=== PATIENT | female | born 1960 | race Caucasian/White ===

== ENCOUNTER → 2017-11-27 | Outpatient (CLI) | payer OTHER ==
[~2017-11-27] MED LIST: ALBIPROI; ATOR20; Advair Hfa 230-12 GM; CEFU500 PO; ERGO400; Estradiol1 MG; FLUNOI; MONTELUKAST SODI1 GM; PRED20 PO; PROG100; ROPI1; THEO100ERB; TIOT18; ZESTRIL40 MG
[2017-11-29 13:11] LABS: HPV Genotype 16 Not Detected (NOTDET); HPV Genotype 18 Not Detected (NOTDET)
[2017-12-16 09:30] LABS: HPV High Risk Other Not Detected (NOTDET)
== END | disposition home or self-care (01) ==
LOC: LAB 12:06
PROVIDERS: Obstetrics & Gynecology
DX: Z09 Encounter for follow-up examination after completed treatment for conditions other than malignant neoplasm (principal); Z87.42 Personal history of other diseases of the female genital tract
CPT/HCPCS: 87624; 88142

== ENCOUNTER 2018-01-17 11:16 | Day surgery (SDC) | payer OTHER ==
[~2018-01-17] VITALS: Ht 167.6 cm; Wt 107.2 kg
[~2018-01-17 11:16] MED LIST changes: -ATOR20; -Advair Hfa 230-12 GM; -MONTELUKAST SODI1 GM; -THEO100ERB
[2018-01-17] MEDS ORDERED: Advair Hfa 230-12 GM (11:44)
[2018-01-17] MEDS ORDERED: ATOR20 (11:46)
[2018-01-17] MEDS ORDERED: MONTELUKAST SODI1 GM (11:46)
[2018-01-17] MEDS ORDERED: THEO100ERB (11:46)
== END 2018-01-17 13:42 | disposition home or self-care (01) ==
LOC: ORSCSDS 11:16
PROVIDERS: Internal Medicine Gastroenterology
PROC: 0DB68ZX Excision of Stomach, Via Natural or Artificial Opening Endoscopic, Diagnostic (ICD-10-PCS; principal; 2018-01-17 12:30)
PROC: 0DBM8ZX Excision of Descending Colon, Via Natural or Artificial Opening Endoscopic, Diagnostic (ICD-10-PCS; principal; 2018-01-17 12:30)
PROC: 0DB58ZX Excision of Esophagus, Via Natural or Artificial Opening Endoscopic, Diagnostic (ICD-10-PCS; principal; 2018-01-17 12:30)
PROC: 0DB98ZX Excision of Duodenum, Via Natural or Artificial Opening Endoscopic, Diagnostic (ICD-10-PCS; principal; 2018-01-17 12:30)
PROC: 0DBN8ZX Excision of Sigmoid Colon, Via Natural or Artificial Opening Endoscopic, Diagnostic (ICD-10-PCS; principal; 2018-01-17 12:30)
DX: K21.0 Gastro-esophageal reflux disease with esophagitis (principal); B37.81 Candidal esophagitis; K22.2 Esophageal obstruction; D12.4 Benign neoplasm of descending colon; K63.5 Polyp of colon; K64.8 Other hemorrhoids; K57.30 Diverticulosis of large intestine without perforation or abscess without bleeding; Z12.11 Encounter for screening for malignant neoplasm of colon; Z80.0 Family history of malignant neoplasm of digestive organs; J44.9 Chronic obstructive pulmonary disease, unspecified; I10 Essential (primary) hypertension; G47.33 Obstructive sleep apnea (adult) (pediatric); Z79.899 Other long term (current) drug therapy; Z87.891 Personal history of nicotine dependence
CPT/HCPCS: 88305; 88312; 88342; J2405; J7120

== ENCOUNTER → 2019-10-31 | Outpatient (CLI) | payer OTHER ==
[~2019-10-31] MED LIST changes: +ATOR20; +Advair Hfa 230-12 GM; +MONTELUKAST SODI1 GM; +THEO100ERB
[2019-10-31 20:36] LABS: BASOPHILS ABSOLUTE AUTO 0.08 K/mm3 (0.00-0.23); BASOPHILS PERCENT AUTO 1 % (0-2); EOSINOPHILS ABSOLUTE AUTO 0.41 K/mm3 (0.00-0.68); EOSINOPHILS PERCENT AUTO 4 % (0-6); Hematocrit 45.3 % (33.0-51.0); Hemoglobin 14.6 g/dL (11.5-16.0); IMMATURE GRAN ABSOLUTE AUTO 0.03 K/mm3 (0.00-0.10); IMMATURE GRAN PERCENT AUTO 0 % (0-1); LYMPHOCYTES ABSOLUTE AUTO 2.76 K/mm3 (0.84-5.20); LYMPHOCYTES PERCENT AUTO 29 % (21-46); MONOCYTES ABSOLUTE AUTO 0.57 K/mm3 (0.16-1.47); MONOCYTES PERCENT AUTO 6 % (4-13); Mean Corpuscular HGB 29.4 pg (26.0-34.0); Mean Corpuscular HGB Conc 32.2 g/dL (31.5-36.5); Mean Corpuscular Volume 91 fL (80-100); NEUTROPHILS ABSOLUTE AUTO 5.63 K/mm3 (1.96-9.15); NEUTROPHILS PERCENT AUTO 60 % (41-73); Platelet Count 296 K/mm3 (150-400); RDW Standard Deviation 43.8 fL (35.1-46.3); Red Blood Cell Count 4.96 M/mm3 (3.80-5.20); White Blood Cell Count 9.48 K/mm3 (4.00-11.30)
== END | disposition home or self-care (01) ==
LOC: LAB 18:15 → LAB SHORT 18:15
PROVIDERS: Nurse Practitioner Family
DX: R21 Rash and other nonspecific skin eruption (principal)
CPT/HCPCS: 85025; 85651; 86140

== ENCOUNTER 2021-06-01 14:23 | Emergency (ER) | payer OTHER ==
[~2021-06-01] VITALS: Ht 167.6 cm; Wt 110.2 kg
[~2021-06-01 14:23] MED LIST changes: +ALBU90OI INH; +BACL10 PO; +FLUTICASONE-SA1 EAC9 INH; +LOSA50 PO; +MEDR2.5; +NAPR220 PO; -TIOT18; +TIOT18 INH; +ZYRTEC10 M1 PO
[2021-06-01 15:40] LABS: BASOPHILS ABSOLUTE AUTO 0.05 K/mm3 (0.00-0.23); BASOPHILS PERCENT AUTO 0 % (0-2); EOSINOPHILS PERCENT AUTO 1 % (0-6); Hematocrit 41.3 % (33.0-51.0); Hemoglobin 13.8 g/dL (11.5-16.0); IMMATURE GRAN ABSOLUTE AUTO 0.09 K/mm3 (0.00-0.10); IMMATURE GRAN PERCENT AUTO 1 % (0-1); LYMPHOCYTES ABSOLUTE AUTO 0.97 K/mm3 (0.84-5.20); LYMPHOCYTES PERCENT AUTO 8 % (21-46); MONOCYTES ABSOLUTE AUTO 1.07 K/mm3 (0.16-1.47); MONOCYTES PERCENT AUTO 9 % (4-13); Mean Corpuscular HGB 29.2 pg (26.0-34.0); Mean Corpuscular HGB Conc 33.4 g/dL (31.5-36.5); Mean Corpuscular Volume 87 fL (80-100); Mean Platelet Volume 10.5 fL (9.1-12.4); NEUTROPHILS ABSOLUTE AUTO 10.36 K/mm3 (1.96-9.15); NEUTROPHILS PERCENT AUTO 82 % (41-73); Platelet Count 291 K/mm3 (150-400); RDW Coefficient Variation 12.8 % (11.7-14.2); RDW Standard Deviation 41.4 fL (35.1-46.3); Red Blood Cell Count 4.73 M/mm3 (3.80-5.20); White Blood Cell Count 12.64 K/mm3 (4.00-11.30)
[2021-06-01 16:02] LABS: Anion Gap 7 mmol/L (6-16); Blood Urea Nitrogen 13 mg/dL (8-24); Bun/Creatinine Ratio 21.3 (12.0-20.0); CO2, Blood 25 mmol/L (21-32); Chloride, Blood 102 mmol/L (98-108); Creatinine, Blood 0.61 mg/dL (0.40-1.00); Glomerular Filtration Rate >60 (60-); Glucose, Blood 106 mg/dL (70-99); Sodium, Blood 134 mmol/L (136-145)
[2021-06-01 17:00] LABS: Source, Urine Clean Catch
[2021-06-01 17:08] LABS: Appearance, Urine Clear (Clear); Bilirubin, Urine Neg (Neg); Blood, Urine 1+ (Neg); Color, Urine Yellow (P-Yellow); Glucose Qualitative, Urine Neg (Neg); Ketones, Urine 3+ (Neg); Leukocyte Esterase, Urine Neg (Neg); Nitrite, Urine Neg (Neg); Protein, Urine 1+ (Neg); Specific Gravity, Urine 1.005 (1.003-1.022); Urobilinogen, Urine NORM (Normal)
[2021-06-01 17:16] LABS: Bacteria Many /hpf; Red Blood Cells, Urine 0-2 /hpf (0-2); Squamous Epithelial Cells Mod /hpf (Few); White Blood Cells, Urine 0-2 /hpf (0-5)
[2021-06-01 17:33] LABS: SARS-Cov-2 (COVID-19) PCR, MMC NEGATIVE (NEGATIVE)
[2021-06-01] MEDS ORDERED: LEVO750 PO (17:55)
== END 2021-06-01 18:36 | disposition home or self-care (01) ==
LOC: ER 14:23
PROVIDERS: Student in an Organized Health Care Education/Training Program
DX: J44.0 Chronic obstructive pulmonary disease with (acute) lower respiratory infection (principal); J18.9 Pneumonia, unspecified organism; D72.829 Elevated white blood cell count, unspecified; I10 Essential (primary) hypertension; Z20.822 Contact with and (suspected) exposure to COVID-19; Z88.0 Allergy status to penicillin; Z88.7 Allergy status to serum and vaccine; Z88.8 Allergy status to other drugs, medicaments and biological substances; Z79.899 Other long term (current) drug therapy; Z87.891 Personal history of nicotine dependence
CPT/HCPCS: 71045; 80048; 81001; 84484; 85025; 93005; 93010; 99285-25; A9270; J7030; U0004

== ENCOUNTER 2021-06-22 09:00 | Emergency (ER) | payer OTHER ==
[~2021-06-22] VITALS: Ht 167.6 cm; Wt 109.8 kg
[~2021-06-22 09:00] MED LIST changes: -ALBU90OI INH; -BACL10 PO; -Estradiol1 MG; +FAMO20 PO; -FLUTICASONE-SA1 EAC9 INH; +INDO50 PO; +LEVO750 PO; -LOSA50 PO; -MEDR2.5; -THEO100ERB; -TIOT18 INH; -ZYRTEC10 M1 PO
[2021-06-22 09:29] LABS: BASOPHILS ABSOLUTE AUTO 0.08 K/mm3 (0.00-0.23); BASOPHILS PERCENT AUTO 1 % (0-2); EOSINOPHILS ABSOLUTE AUTO 0.25 K/mm3 (0.00-0.68); EOSINOPHILS PERCENT AUTO 2 % (0-6); Hematocrit 40.1 % (33.0-51.0); Hemoglobin 13.3 g/dL (11.5-16.0); IMMATURE GRAN ABSOLUTE AUTO 0.11 K/mm3 (0.00-0.10); IMMATURE GRAN PERCENT AUTO 1 % (0-1); LYMPHOCYTES ABSOLUTE AUTO 1.09 K/mm3 (0.84-5.20); LYMPHOCYTES PERCENT AUTO 7 % (21-46); MONOCYTES ABSOLUTE AUTO 1.86 K/mm3 (0.16-1.47); MONOCYTES PERCENT AUTO 12 % (4-13); Mean Corpuscular HGB 28.6 pg (26.0-34.0); Mean Corpuscular HGB Conc 33.2 g/dL (31.5-36.5); Mean Corpuscular Volume 86 fL (80-100); Mean Platelet Volume 10.1 fL (9.1-12.4); NEUTROPHILS ABSOLUTE AUTO 12.22 K/mm3 (1.96-9.15); NEUTROPHILS PERCENT AUTO 78 % (41-73); Platelet Count 360 K/mm3 (150-400); RDW Coefficient Variation 12.9 % (11.7-14.2); RDW Standard Deviation 40.8 fL (35.1-46.3); Red Blood Cell Count 4.65 M/mm3 (3.80-5.20); White Blood Cell Count 15.61 K/mm3 (4.00-11.30)
[2021-06-22 09:53] LABS: Alanine Aminotransfer (ALT/SGP 21 U/L (12-78); Albumin/Globulin Ratio 0.7 (0.8-1.8); Alk Phos 98 U/L (50-136); Anion Gap 9 mmol/L (6-16); Aspartate Aminotrans (AST/SGOT 11 U/L (12-37); Bilirubin, Total 0.6 mg/dL (0.1-1.0); Blood Urea Nitrogen 13 mg/dL (8-24); Bun/Creatinine Ratio 19.8 (12.0-20.0); CO2, Blood 25 mmol/L (21-32); Calcium, Blood 9.6 mg/dL (8.5-10.1); Chloride, Blood 104 mmol/L (98-108); Creatinine, Blood 0.66 mg/dL (0.40-1.00); Globulin, Blood 4.6 g/dL (2.2-4.0); Glomerular Filtration Rate >60 (60-); Glucose, Blood 158 mg/dL (70-99); Sodium, Blood 138 mmol/L (136-145); Total Protein, Blood 7.6 g/dL (6.4-8.2); Troponin I <0.015 ng/mL (0.000-0.040)
[2021-06-22 10:56] LABS: Prothrombin Time Results 10.8 Sec (9.7-11.5)
[2021-06-22 12:33] LABS: Automated BF WBC Count 5.204 K/mm3 (0-999); Body Fluid WBC Count 5204 /mm3 (0-999); RBC Count, Body Fluid 30000 /mm3 (0-0)
[2021-06-22 12:36] LABS: Appearance, Body Fluid Cloudy (Clear); Color, Body Fluid Red (None-Yellow)
[2021-06-22 13:13] LABS: Total Cell Count, Body Fluid 100
[2021-06-22] MEDS ORDERED: LEVFLO500 PO (13:13)
[2021-06-22] MEDS ORDERED: ONDA4ODT MM (13:13)
== END 2021-06-22 13:56 | disposition home or self-care (01) ==
LOC: ER 09:00
PROVIDERS: Emergency Medicine
DX: J90 Pleural effusion, not elsewhere classified (principal); I10 Essential (primary) hypertension; J44.9 Chronic obstructive pulmonary disease, unspecified; Z88.0 Allergy status to penicillin; Z88.7 Allergy status to serum and vaccine; Z88.8 Allergy status to other drugs, medicaments and biological substances; Z79.899 Other long term (current) drug therapy; Z87.891 Personal history of nicotine dependence
CPT/HCPCS: 32555; 36415; 71045; 80053; 83880; 84484; 85025; 85610; 85730; 89051; 93005; 93010; 99285-25

== ENCOUNTER 2021-06-26 15:16 | Inpatient (IN) | payer OTHER ==
[~2021-06-26] VITALS: Ht 167.6 cm; Wt 108.4 kg
[~2021-06-26 15:16] MED LIST changes: +LEVFLO500 PO; +ONDA4ODT MM
[2021-06-26 15:57] LABS: BASOPHILS ABSOLUTE AUTO 0.11 K/mm3 (0.00-0.23); BASOPHILS PERCENT AUTO 1 % (0-2); EOSINOPHILS ABSOLUTE AUTO 0.04 K/mm3 (0.00-0.68); EOSINOPHILS PERCENT AUTO 0 % (0-6); Hematocrit 41.6 % (33.0-51.0); IMMATURE GRAN PERCENT AUTO 2 % (0-1); LYMPHOCYTES ABSOLUTE AUTO 1.64 K/mm3 (0.84-5.20); LYMPHOCYTES PERCENT AUTO 10 % (21-46); MONOCYTES PERCENT AUTO 11 % (4-13); Mean Corpuscular HGB 28.7 pg (26.0-34.0); Mean Corpuscular HGB Conc 33.7 g/dL (31.5-36.5); Mean Corpuscular Volume 85 fL (80-100); Mean Platelet Volume 9.9 fL (9.1-12.4); NEUTROPHILS PERCENT AUTO 77 % (41-73); Platelet Count 438 K/mm3 (150-400); RDW Coefficient Variation 13.2 % (11.7-14.2); RDW Standard Deviation 41.2 fL (35.1-46.3); Red Blood Cell Count 4.87 M/mm3 (3.80-5.20); White Blood Cell Count 17.19 K/mm3 (4.00-11.30)
[2021-06-26 16:20] LABS: Alanine Aminotransfer (ALT/SGP 18 U/L (12-78); Albumin, Blood 2.6 g/dL (3.4-5.0); Albumin/Globulin Ratio 0.5 (0.8-1.8); Alk Phos 109 U/L (50-136); Anion Gap 8 mmol/L (6-16); Aspartate Aminotrans (AST/SGOT 9 U/L (12-37); Bilirubin, Total 0.8 mg/dL (0.1-1.0); Blood Urea Nitrogen 10 mg/dL (8-24); Bun/Creatinine Ratio 15.5 (12.0-20.0); CO2, Blood 24 mmol/L (21-32); Calcium, Blood 9.6 mg/dL (8.5-10.1); Chloride, Blood 102 mmol/L (98-108); Creatinine, Blood 0.65 mg/dL (0.40-1.00); Globulin, Blood 5.1 g/dL (2.2-4.0); Glomerular Filtration Rate >60 (60-); Glucose, Blood 143 mg/dL (70-99); Potassium, Blood 4.2 mmol/L (3.5-5.5); Sodium, Blood 134 mmol/L (136-145); Total Protein, Blood 7.7 g/dL (6.4-8.2); Troponin I <0.015 ng/mL (0.000-0.040)
[2021-06-26] MEDS ORDERED: ESTRADIOL0.5 MG PO (20:14)
[2021-06-26] MEDS ORDERED: TIOT18 INH (20:14)
[2021-06-26] MEDS ORDERED: ZYRTEC10 M1 PO (20:15)
[2021-06-26] MEDS ORDERED: THEO400ER PO (20:15)
[2021-06-26] MEDS ORDERED: LOSARTAN POTAS100 M1 PO (20:16)
[2021-06-26] MEDS ORDERED: FLUTICASONE-SA1 EAC9 INH (20:16)
[2021-06-26] MEDS ORDERED: BACL10 PO (20:17)
[2021-06-26] MEDS ORDERED: MEDR2.5 PO (20:18)
[2021-06-26] MEDS ORDERED: ALBU90OI INH (20:18)
[2021-06-26] MEDS ORDERED: ROPI.25 PO (20:25)
[2021-06-27 05:52] LABS: BASOPHILS PERCENT AUTO 1 % (0-2); EOSINOPHILS PERCENT AUTO 1 % (0-6); Hematocrit 39.7 % (33.0-51.0); IMMATURE GRAN ABSOLUTE AUTO 0.35 K/mm3 (0.00-0.10); IMMATURE GRAN PERCENT AUTO 2 % (0-1); LYMPHOCYTES ABSOLUTE AUTO 1.79 K/mm3 (0.84-5.20); LYMPHOCYTES PERCENT AUTO 11 % (21-46); MONOCYTES ABSOLUTE AUTO 1.93 K/mm3 (0.16-1.47); MONOCYTES PERCENT AUTO 12 % (4-13); Mean Corpuscular HGB 28.1 pg (26.0-34.0); Mean Corpuscular HGB Conc 32.7 g/dL (31.5-36.5); Mean Corpuscular Volume 86 fL (80-100); Mean Platelet Volume 9.9 fL (9.1-12.4); NEUTROPHILS ABSOLUTE AUTO 11.37 K/mm3 (1.96-9.15); NEUTROPHILS PERCENT AUTO 73 % (41-73); Platelet Count 412 K/mm3 (150-400); RDW Coefficient Variation 13.2 % (11.7-14.2); RDW Standard Deviation 41.4 fL (35.1-46.3); Red Blood Cell Count 4.62 M/mm3 (3.80-5.20); White Blood Cell Count 15.64 K/mm3 (4.00-11.30)
[2021-06-27 06:07] LABS: International Normalized Ratio 1.06; Prothrombin Time Results 11.1 Sec (9.7-11.5)
[2021-06-27 06:11] LABS: Alanine Aminotransfer (ALT/SGP 14 U/L (12-78); Albumin, Blood 2.3 g/dL (3.4-5.0); Albumin/Globulin Ratio 0.5 (0.8-1.8); Alk Phos 106 U/L (50-136); Anion Gap 8 mmol/L (6-16); Aspartate Aminotrans (AST/SGOT 9 U/L (12-37); Bilirubin, Total 0.8 mg/dL (0.1-1.0); Blood Urea Nitrogen 9 mg/dL (8-24); Bun/Creatinine Ratio 14.2 (12.0-20.0); CO2, Blood 27 mmol/L (21-32); Calcium, Blood 9.4 mg/dL (8.5-10.1); Chloride, Blood 98 mmol/L (98-108); Creatinine, Blood 0.63 mg/dL (0.40-1.00); Globulin, Blood 4.9 g/dL (2.2-4.0); Glomerular Filtration Rate >60 (60-); Glucose, Blood 136 mg/dL (70-99); Potassium, Blood 3.9 mmol/L (3.5-5.5); Sodium, Blood 133 mmol/L (136-145); Total Protein, Blood 7.2 g/dL (6.4-8.2)
--- NOTE | 2021-06-27 07:46 | NUR ---
SHIFT SUMMARY PATIENT ALERT AND ORIENTED. MEDICATED PER EMAR FOR PAIN. REPORTS HAVING SHORTNESS OF BREATH AT REST, PURSED LIP BREATHING. NO ACUTE ISSUES NOTED OVERNIGHT. CALL LIGHT WITHIN REACH. REPORT GIVEN TO ONCOMING RN.
--- NOTE | 2021-06-27 20:20 | NUR ---
SUMM- PT A/O X4, WENT DOWN FOR U.S GUIDED THOROCENTESIS THIS AM. 200ML OFF, PT STATES SHE FEELS BETTER POST PROCEDURE, L LOWER LUNG FIELD 1/[address] CANTU, HAS ORDERED US GUIDED BX OF LUNG MASS. PT STATES PAIN IN DIAHPHRAGM REGION ESPECIALLY WITH DEEP BREATH AND MORESO ON THE L. MEDICATED WITH IRMS WITH RELEIF. ELEVATED BP'S, STARTED ON LOSARTIN MID AFTERNOON WITH NO CHANGE. GAVE IV METOPROLOL AND REPORTED TO NOC RN TO F/U.
--- NOTE | 2021-06-28 06:12 | NUR ---
PATIENT SUMMARY PATIENT IS ALERT AND ORIENTED X4. VS STABLE FOR PATIENT ON RA. NO COMPLAINTS OF CHEST PAIN OR SHORTNESS OF BREATH. NO EVENTS OVER NIGHT. ALL CARES AND MEDICATIONS GIVEN AND COMPLETED ORDERED ACCORDING TO NURSING JUDGEMENT. ALL UNFINISHED CARES ENDORSED TO ONCOMING RN.
--- NOTE | 2021-06-28 18:15 | NUR ---
PT AO X 4,VERY PLEASANT,PT ASSESSMENT REMAINS UNCHANGED,NO ACUTE CHANGES T/O THE SHIFT,PT IS WALKING AROUND IN THE ROOM.BELONGINS AND CALL LIGHT IN REACH.
--- NOTE | 2021-06-28 23:56 | NUR ---
Called Dr. Abraham hart lung sounds on the left side are absent. orders given for chest x-ray and will continue to monitor.
[2021-06-29 05:23] LABS: BASOPHILS ABSOLUTE AUTO 0.08 K/mm3 (0.00-0.23); BASOPHILS PERCENT AUTO 1 % (0-2); EOSINOPHILS ABSOLUTE AUTO 0.15 K/mm3 (0.00-0.68); EOSINOPHILS PERCENT AUTO 1 % (0-6); Hematocrit 39.3 % (33.0-51.0); Hemoglobin 12.7 g/dL (11.5-16.0); IMMATURE GRAN ABSOLUTE AUTO 0.44 K/mm3 (0.00-0.10); IMMATURE GRAN PERCENT AUTO 3 % (0-1); LYMPHOCYTES ABSOLUTE AUTO 2.08 K/mm3 (0.84-5.20); LYMPHOCYTES PERCENT AUTO 14 % (21-46); MONOCYTES ABSOLUTE AUTO 1.53 K/mm3 (0.16-1.47); MONOCYTES PERCENT AUTO 10 % (4-13); Mean Corpuscular HGB 27.4 pg (26.0-34.0); Mean Corpuscular HGB Conc 32.3 g/dL (31.5-36.5); Mean Corpuscular Volume 85 fL (80-100); Mean Platelet Volume 9.9 fL (9.1-12.4); NEUTROPHILS ABSOLUTE AUTO 10.37 K/mm3 (1.96-9.15); NEUTROPHILS PERCENT AUTO 71 % (41-73); Platelet Count 407 K/mm3 (150-400); RDW Coefficient Variation 13.2 % (11.7-14.2); RDW Standard Deviation 41.1 fL (35.1-46.3); Red Blood Cell Count 4.63 M/mm3 (3.80-5.20); White Blood Cell Count 14.65 K/mm3 (4.00-11.30)
[2021-06-29 05:42] LABS: Albumin, Blood 2.2 g/dL (3.4-5.0); Anion Gap 8 mmol/L (6-16); Blood Urea Nitrogen 13 mg/dL (8-24); Bun/Creatinine Ratio 18.8 (12.0-20.0); CO2, Blood 26 mmol/L (21-32); Calcium, Blood 9.3 mg/dL (8.5-10.1); Chloride, Blood 99 mmol/L (98-108); Creatinine, Blood 0.69 mg/dL (0.40-1.00); Glomerular Filtration Rate >60 (60-); Glucose, Blood 126 mg/dL (70-99); Phosphorus, Blood 3.4 mg/dL (2.5-4.9); Potassium, Blood 3.6 mmol/L (3.5-5.5); Sodium, Blood 133 mmol/L (136-145)
--- NOTE | 2021-06-29 18:39 | NUR ---
PT IS AO X 4, PT HAS NO ACUTES CHANGES THROUGHOUT SHIFT,PT ASSESSMENT REMAINS UNCHANGED,PT IN BED,CALL LIGHT IN REACH WILL CONTINUE TO MONITOR.
[2021-06-29 20:06] LABS: Automated BF RBC Count 0.011 M/mm3 (0-0); Automated BF WBC Count 0.878 K/mm3 (0-999); Body Fluid WBC Count 878 /mm3 (0-999); RBC Count, Body Fluid 11000 /mm3 (0-0)
[2021-06-29 20:19] LABS: Glucose, Body Fluid 89 mg/dL; Lactate Dehydrogenase, Body Fl 450 U/L; Protein, Body Fluid 5.2 g/dL
[2021-06-29 20:21] LABS: Albumin, Body Fluid 2.1 g/dL
[2021-06-29 21:31] LABS: Appearance, Body Fluid Hazy (Clear); Color, Body Fluid Yellow (None-Yellow); Total Cell Count, Body Fluid 100
[2021-06-29 22:47] LABS: pH, Body Fluid 7.5
--- NOTE | 2021-06-30 04:28 | NUR ---
CLOTH BEAMER SUMMARY ADMITTED FOR LEFT PLEURAL EFFUSION. PT IS A FULL CODE. PT HAD BEDSIDE THORACENTESIS AT THE BEGINNING OF SHIFT AND MEDICATED FOR PAIN X1. PT HAS BEEN RESTING COMFORTABLY. SHE IS INDEPENDENT IN THE ROOM. PT WOKE UP SHORT OF BREATH AND RECEIVED BREATHING TREATMENT. NO OTHER CONCERNS THIS SHIFT.
[2021-06-30 05:37] LABS: Total Protein, Blood 7.5 g/dL (6.4-8.2)
[2021-06-30 09:36] LABS: Hematocrit 42.3 % (33.0-51.0); Hemoglobin 13.5 g/dL (11.5-16.0); Mean Corpuscular HGB 28.1 pg (26.0-34.0); Mean Corpuscular HGB Conc 31.9 g/dL (31.5-36.5); Mean Corpuscular Volume 88 fL (80-100); Mean Platelet Volume 10.6 fL (9.1-12.4); Platelet Count 377 K/mm3 (150-400); RDW Coefficient Variation 13.2 % (11.7-14.2); RDW Standard Deviation 42.8 fL (35.1-46.3); White Blood Cell Count 16.47 K/mm3 (4.00-11.30)
[2021-06-30 09:51] LABS: Albumin, Blood 2.3 g/dL (3.4-5.0); Anion Gap 8 mmol/L (6-16); Blood Urea Nitrogen 13 mg/dL (8-24); Bun/Creatinine Ratio 16.8 (12.0-20.0); CO2, Blood 27 mmol/L (21-32); Calcium, Blood 9.2 mg/dL (8.5-10.1); Chloride, Blood 98 mmol/L (98-108); Creatinine, Blood 0.77 mg/dL (0.40-1.00); Glomerular Filtration Rate >60 (60-); Glucose, Blood 132 mg/dL (70-99); Phosphorus, Blood 3.7 mg/dL (2.5-4.9); Potassium, Blood 3.7 mmol/L (3.5-5.5); Sodium, Blood 133 mmol/L (136-145)
[2021-06-30 09:59] LABS: BAND PERCENT MAN 10 % (0-8); BASOPHILS ABSOLUTE MAN 0.16 K/mm3 (0.00-0.23); BASOPHILS PERCENT MAN 1 % (0-2); EOSINOPHILS PERCENT MAN 0 % (0-6); LYMPHOCYTES ABSOLUTE MAN 1.81 K/mm3 (0.84-5.20); LYMPHOCYTES PERCENT MAN 11 % (21-46); METAMYELOCYTE ABSOLUTE MAN 0.16 K/mm3 (0.00-0.00); METAMYELOCYTE PERCENT MAN 1 % (0-0); MONOCYTES ABSOLUTE MAN 0.49 K/mm3 (0.16-1.47); MONOCYTES PERCENT MAN 3 % (4-13); NEUTROPHILS ABSOLUTE MAN 13.83 K/mm3 (1.96-9.15); SEG NEUTROPHILS PERCENT MAN 74 % (41-73); TOTAL CELLS COUNTED 100
--- NOTE | 2021-06-30 15:29 | NUR ---
PT AO X 4,PT IS INDEPENDENT,PT ASSESSMENT REMAINS UNCHANGED,PT HAS NO ACUTES CHANGES T/O.PT TRANSFERED VIA STRETCHER TO [place] FOR FURTHER MONITORING,WITH ALL HER BELONGINS.
[2021-07-04 06:09] LABS: (LD) FRACTION 1 20 % (17-32); (LD) FRACTION 2 28 % (25-40); (LD) FRACTION 3 19 % (17-27); (LD) FRACTION 4 10 % (5-13); (LD) FRACTION 5 23 % (4-20); LDH 157 IU/L (119-226)
== END 2021-06-30 15:16 | disposition short-term general hospital (02) | DRG 177 ==
LOC: ER 15:16 → MEDS 15:17
PROVIDERS: Family Medicine; Internal Medicine Critical Care Medicine; Physician Assistant; Student in an Organized Health Care Education/Training Program; ADMIT Internal Medicine
PROC: 0W9B3ZZ Drainage of Left Pleural Cavity, Percutaneous Approach (ICD-10-PCS; principal; 2021-06-29)
DX: J86.9 Pyothorax without fistula (principal); J15.6 Pneumonia due to other Gram-negative bacteria; J91.8 Pleural effusion in other conditions classified elsewhere; J44.9 Chronic obstructive pulmonary disease, unspecified; I10 Essential (primary) hypertension; G47.33 Obstructive sleep apnea (adult) (pediatric); E66.9 Obesity, unspecified; F41.9 Anxiety disorder, unspecified; G62.9 Polyneuropathy, unspecified; Z87.891 Personal history of nicotine dependence; Z98.51 Tubal ligation status; Z88.0 Allergy status to penicillin; Z88.7 Allergy status to serum and vaccine; Z88.8 Allergy status to other drugs, medicaments and biological substances; Z98.890 Other specified postprocedural states; Z68.38 Body mass index [BMI] 38.0-38.9, adult; Z79.899 Other long term (current) drug therapy
CPT/HCPCS: 32555; 36415; 71045; 71046; 80053; 80069; 82042; 82945; 83615; 83625; 83986; 84155; 84157; 84484; 85025; 85610; 87070; 87075; 87076; 87205; 88108; 88305; 89051; 93005; 93010; 94640; 94664; 94760; 94762; 99285-25; A9270; G0378; J1650; J2185; J2405; J3370; J7050

== ENCOUNTER 2022-06-09 08:00 | Inpatient (IN) | payer OTHER ==
[~2022-06-09] VITALS: Ht 167.6 cm; Wt 102.2 kg
[~2022-06-09 08:00] MED LIST changes: +ALBU90OI INH; +AMLO5 PO; +ASPI81CH PO; +ATOR80 PO; +BACL10 PO; +ESTRADIOL0.5 MG PO; +FLUTICASONE-SA1 EAC9 INH; +HYDHCL25 PO; +LOSARTAN POTAS100 M1 PO; +MEDR2.5 PO; +METO10 PO; +Prozac20 MG PO; +Pulmicort Fle180 MCG INH; +ROPI.25 PO; +THEO400ER PO; +THERA-D2000 UNIT PO; +TIOT18 INH; +ZYRTEC10 M1 PO
[2022-06-09 09:18] LABS: BASOPHILS ABSOLUTE AUTO 0.09 K/mm3 (0.00-0.23); BASOPHILS PERCENT AUTO 1 % (0-2); EOSINOPHILS ABSOLUTE AUTO 0.34 K/mm3 (0.00-0.68); EOSINOPHILS PERCENT AUTO 3 % (0-6); Hematocrit 48.6 % (33.0-51.0); Hemoglobin 16.2 g/dL (11.5-16.0); IMMATURE GRAN ABSOLUTE AUTO 0.07 K/mm3 (0.00-0.10); IMMATURE GRAN PERCENT AUTO 1 % (0-1); LYMPHOCYTES ABSOLUTE AUTO 1.92 K/mm3 (0.84-5.20); LYMPHOCYTES PERCENT AUTO 17 % (21-46); MONOCYTES ABSOLUTE AUTO 0.85 K/mm3 (0.16-1.47); MONOCYTES PERCENT AUTO 7 % (4-13); Mean Corpuscular HGB 29.6 pg (26.0-34.0); Mean Corpuscular HGB Conc 33.3 g/dL (31.5-36.5); Mean Corpuscular Volume 89 fL (80-100); Mean Platelet Volume 10.6 fL (9.1-12.4); NEUTROPHILS ABSOLUTE AUTO 8.34 K/mm3 (1.96-9.15); NEUTROPHILS PERCENT AUTO 72 % (41-73); Platelet Count 289 K/mm3 (150-400); RDW Coefficient Variation 12.6 % (11.7-14.2); RDW Standard Deviation 41.3 fL (35.1-46.3); Red Blood Cell Count 5.48 M/mm3 (3.80-5.20); White Blood Cell Count 11.61 K/mm3 (4.00-11.30)
[2022-06-09 09:37] LABS: Albumin, Blood 3.8 g/dL (3.4-5.0); Bilirubin, Total 0.3 mg/dL (0.1-1.0); Bun/Creatinine Ratio 23.1 (12.0-20.0); Calcium, Blood 9.5 mg/dL (8.5-10.1); Creatinine, Blood 0.69 mg/dL (0.40-1.00); Potassium, Blood 4.2 mmol/L (3.5-5.5); Total Protein, Blood 7.8 g/dL (6.4-8.2)
[2022-06-09 11:14] LABS: Influenza A, PCR NEGATIVE (NEGATIVE); Influenza B, PCR NEGATIVE (NEGATIVE); Resp Syncytial Virus, PCR NEGATIVE (NEGATIVE); SARS-Cov-2 (COVID-19) PCR, MMC NEGATIVE (NEGATIVE)
[2022-06-09] MEDS ORDERED: ONDA4ODT MM (12:46)
[2022-06-09] MEDS ORDERED: LOSA50 PO (18:25)
--- NOTE | 2022-06-09 18:35 | NUR ---
PT ARRIVED TO PCU13, ABLE TO STAND AND AMBULATE FROM GURNEY TO BED WIOUT ASSISTANCE. ABLE TO AMBULATE TO RESTROOM AND BACK WITH SBA FOR IV POLE. PT REPORTS NAUSEA AND APPEARS TO HAVE NONPRODUCTIVE DRY HEAVES. PHENERGAN IS NOT YET DUE PRN. PT IS A&OX4, FOLLOWS COMMANDS, [place], CONTINUOUS TELEMETRY IN PLACE, ORIENTED TO UNIT, ROOM AND CALL LIGHT. SEE DOCUMENTED VS. CALL LIGHT IN REACH, WILL CONTINUE TO MONITOR AND GIVE REPORT TO NOC SHIFT RN.
[2022-06-10 04:07] LABS: Hemoglobin 16.1 g/dL (11.5-16.0); Mean Corpuscular HGB 29.2 pg (26.0-34.0); Mean Corpuscular HGB Conc 33.5 g/dL (31.5-36.5); Mean Corpuscular Volume 87 fL (80-100); Mean Platelet Volume 10.6 fL (9.1-12.4); Platelet Count 299 K/mm3 (150-400); RDW Coefficient Variation 12.9 % (11.7-14.2); RDW Standard Deviation 41.1 fL (35.1-46.3); Red Blood Cell Count 5.52 M/mm3 (3.80-5.20)
[2022-06-10 04:24] LABS: Bun/Creatinine Ratio 19.3 (12.0-20.0); Calcium, Blood 9.2 mg/dL (8.5-10.1); Creatinine, Blood 0.57 mg/dL (0.40-1.00); Potassium, Blood 3.6 mmol/L (3.5-5.5)
--- NOTE | 2022-06-10 06:24 | NUR ---
SHIFT SUMMARY PT IS ALERT AND ORIENTED X4. SHE DENIES CHEST PAIN/PRESSURE. DENIES SOB. PT HAD HIGH BP'S UNTIL 2400 WHEN GIVEN PO HTN MEDS WELL IV HTN MEDS PER ORDER. SHE HAS BEEN NAUSEAOUS T/O THE NIGHT WITH SOME RELIEF AFTER RECEIVING BENADRYL IV AND LOWERING BP. PT DID REPORT HAVING A HISTORY OF VERTIGO. HR IS SR IN THE 80'S WITH PROLONGED QTC. SHE IS ABLE TO GET UP TO BSC ADLIB. CALL LIGHT IS WITHIN REACH.
[2022-06-10] MEDS ORDERED: PANT20 PO (12:35)
[2022-06-10] MEDS ORDERED: PROM25 PO (12:42)
--- NOTE | 2022-06-10 13:55 | NUR ---
PT DISCHARGED HOME WITH ALL BELONGINGS. PT TRANSPORTED BY A FRIEND. DISCHARGE TEACHING REVIEWED INCLUDING MEDICATION LIST, NEW MEDICATION, FOLLOW UP APPOINTMENT AND TEACHING. PT STATES SHE HAS NO QUESTIONS OR CONCERS AT THIS TIME. IVs X2 REMOVED WITH CATHETERS INTACT. NO FURTHER DISCHARGE NEEDS IDENTIFIED AT THIS TIME.
== END 2022-06-10 14:08 | disposition home or self-care (01) | DRG 305 ==
LOC: ER 08:00 → ICUW 16:30 → PCU 18:13
PROVIDERS: Physician Assistant; ADMIT Internal Medicine
DX: I16.0 Hypertensive urgency (principal); K92.0 Hematemesis; J44.9 Chronic obstructive pulmonary disease, unspecified; K21.9 Gastro-esophageal reflux disease without esophagitis; Z20.822 Contact with and (suspected) exposure to COVID-19; E11.9 Type 2 diabetes mellitus without complications; F41.8 Other specified anxiety disorders; F43.10 Post-traumatic stress disorder, unspecified; E78.00 Pure hypercholesterolemia, unspecified; F12.10 Cannabis abuse, uncomplicated; Z98.51 Tubal ligation status; Z98.890 Other specified postprocedural states; Z88.0 Allergy status to penicillin; Z88.8 Allergy status to other drugs, medicaments and biological substances; Z88.1 Allergy status to other antibiotic agents; Z88.7 Allergy status to serum and vaccine; Z79.899 Other long term (current) drug therapy; Z79.82 Long term (current) use of aspirin; Z79.02 Long term (current) use of antithrombotics/antiplatelets; Z79.51 Long term (current) use of inhaled steroids; Z87.891 Personal history of nicotine dependence
CPT/HCPCS: 0241U; 71046; 80048; 80053; 82947; 84484; 85025; 85027; 93005; 93010; 94640; 94664; 94760; 94762; 96374; 96375; 99285-25; A9270; C9113; J0360; J1200; J2405; J2550; J2765; J7030; J7050

== ENCOUNTER 2022-07-19 13:38 | Emergency (ER) | payer OTHER ==
[~2022-07-19] VITALS: Ht 167.6 cm; Wt 106.6 kg
[~2022-07-19 13:38] MED LIST changes: +LOSA50 PO; +PANT20 PO; +PROM25 PO
[2022-07-19 15:06] LABS: BASOPHILS ABSOLUTE AUTO 0.02 K/mm3 (0.00-0.23); BASOPHILS PERCENT AUTO 0 % (0-2); EOSINOPHILS ABSOLUTE AUTO 0.04 K/mm3 (0.00-0.68); EOSINOPHILS PERCENT AUTO 0 % (0-6); Hematocrit 49.1 % (33.0-51.0); Hemoglobin 16.2 g/dL (11.5-16.0); IMMATURE GRAN ABSOLUTE AUTO 0.08 K/mm3 (0.00-0.10); IMMATURE GRAN PERCENT AUTO 1 % (0-1); LYMPHOCYTES ABSOLUTE AUTO 1.06 K/mm3 (0.84-5.20); LYMPHOCYTES PERCENT AUTO 9 % (21-46); MONOCYTES PERCENT AUTO 3 % (4-13); Mean Corpuscular HGB 28.8 pg (26.0-34.0); Mean Corpuscular Volume 87 fL (80-100); Mean Platelet Volume 10.4 fL (9.1-12.4); NEUTROPHILS ABSOLUTE AUTO 10.57 K/mm3 (1.96-9.15); NEUTROPHILS PERCENT AUTO 87 % (41-73); Platelet Count 336 K/mm3 (150-400); RDW Coefficient Variation 12.6 % (11.7-14.2); RDW Standard Deviation 40.7 fL (35.1-46.3); Red Blood Cell Count 5.62 M/mm3 (3.80-5.20); White Blood Cell Count 12.17 K/mm3 (4.00-11.30)
[2022-07-19 15:30] LABS: Albumin, Blood 4.2 g/dL (3.4-5.0); Bilirubin, Total 0.6 mg/dL (0.1-1.0); Bun/Creatinine Ratio 25.6 (12.0-20.0); Calcium, Blood 9.8 mg/dL (8.5-10.1); Creatinine, Blood 0.59 mg/dL (0.40-1.00); Globulin, Blood 4.2 g/dL (2.2-4.0); Potassium, Blood 3.8 mmol/L (3.5-5.5); Total Protein, Blood 8.4 g/dL (6.4-8.2)
[2022-07-19] MEDS ORDERED: PHENERGAN25 MG PR (20:43)
== END 2022-07-19 21:02 | disposition home or self-care (01) ==
LOC: ER 13:38
PROVIDERS: Physician Assistant
DX: R11.2 Nausea with vomiting, unspecified (principal); J44.9 Chronic obstructive pulmonary disease, unspecified; Z88.0 Allergy status to penicillin; Z88.8 Allergy status to other drugs, medicaments and biological substances; Z88.7 Allergy status to serum and vaccine; Z88.1 Allergy status to other antibiotic agents; Z79.899 Other long term (current) drug therapy
CPT/HCPCS: 36415; 80053; 83690; 85025; A9270; J0360; J1200; J1630; J1790; J7030

== ENCOUNTER 2023-04-29 15:35 | Observation (INO) | payer OTHER ==
[~2023-04-29] VITALS: Ht 167.6 cm; Wt 103.6 kg
[~2023-04-29 15:35] MED LIST changes: -PANT20 PO; +PANT40 PO; +PHENERGAN25 MG PR
[2023-04-29 16:27] LABS: BASOPHILS ABSOLUTE AUTO 0.06 K/mm3 (0.00-0.23); BASOPHILS PERCENT AUTO 0 % (0-2); EOSINOPHILS ABSOLUTE AUTO 0.05 K/mm3 (0.00-0.68); EOSINOPHILS PERCENT AUTO 0 % (0-6); Hematocrit 49.6 % (33.0-51.0); Hemoglobin 17.6 g/dL (11.5-16.0); IMMATURE GRAN ABSOLUTE AUTO 0.14 K/mm3 (0.00-0.10); IMMATURE GRAN PERCENT AUTO 1 % (0-1); LYMPHOCYTES ABSOLUTE AUTO 1.67 K/mm3 (0.84-5.20); LYMPHOCYTES PERCENT AUTO 8 % (21-46); MONOCYTES ABSOLUTE AUTO 0.96 K/mm3 (0.16-1.47); MONOCYTES PERCENT AUTO 5 % (4-13); Mean Corpuscular HGB 29.6 pg (26.0-34.0); Mean Corpuscular HGB Conc 35.5 g/dL (31.5-36.5); Mean Corpuscular Volume 83 fL (80-100); Mean Platelet Volume 10.5 fL (9.1-12.4); NEUTROPHILS ABSOLUTE AUTO 17.72 K/mm3 (1.96-9.15); NEUTROPHILS PERCENT AUTO 86 % (41-73); Platelet Count 336 K/mm3 (150-400); RDW Coefficient Variation 13.2 % (11.7-14.2); RDW Standard Deviation 40.6 fL (35.1-46.3); Red Blood Cell Count 5.95 M/mm3 (3.80-5.20)
[2023-04-29 16:43] LABS: Albumin, Blood 4.3 g/dL (3.4-5.0); Bun/Creatinine Ratio 22.5 (12.0-20.0); Calcium, Blood 9.7 mg/dL (8.5-10.1); Creatinine, Blood 0.53 mg/dL (0.40-1.00); Globulin, Blood 4.5 g/dL (2.2-4.0); Total Protein, Blood 8.8 g/dL (6.4-8.2)
[2023-04-29 18:35] LABS: Source, Urine Clean Catch
[2023-04-29 18:45] LABS: Appearance, Urine Clear (Clear); Bilirubin, Urine Neg (Neg); Blood, Urine 3+ (Neg); Color, Urine Yellow (P-Yellow); Glucose Qualitative, Urine Neg (Neg); Ketones, Urine 3+ (Neg); Leukocyte Esterase, Urine Neg (Neg); Nitrite, Urine Neg (Neg); Protein, Urine 2+ (Neg); Urobilinogen, Urine NORM (Normal); pH, Urine 6.5 (5.0-8.0)
[2023-04-29 19:20] LABS: White Blood Cells, Urine 0-2 /hpf (0-5)
[2023-04-29 19:21] LABS: Bacteria Few /hpf; Squamous Epithelial Cells Rare /hpf (Few)
[2023-04-29 23:53] VITALS: BP 199/109
[2023-04-30 00:27] VITALS: BP 167/89
[2023-04-30 04:36] VITALS: BP 131/71
[2023-04-30 05:04] LABS: BASOPHILS ABSOLUTE AUTO 0.04 K/mm3 (0.00-0.23); BASOPHILS PERCENT AUTO 0 % (0-2); EOSINOPHILS ABSOLUTE AUTO 0.05 K/mm3 (0.00-0.68); EOSINOPHILS PERCENT AUTO 0 % (0-6); Hematocrit 45.3 % (33.0-51.0); Hemoglobin 15.6 g/dL (11.5-16.0); IMMATURE GRAN ABSOLUTE AUTO 0.13 K/mm3 (0.00-0.10); IMMATURE GRAN PERCENT AUTO 1 % (0-1); LYMPHOCYTES ABSOLUTE AUTO 2.16 K/mm3 (0.84-5.20); LYMPHOCYTES PERCENT AUTO 13 % (21-46); MONOCYTES ABSOLUTE AUTO 1.35 K/mm3 (0.16-1.47); MONOCYTES PERCENT AUTO 8 % (4-13); Mean Corpuscular HGB 29.6 pg (26.0-34.0); Mean Corpuscular HGB Conc 34.4 g/dL (31.5-36.5); Mean Corpuscular Volume 86 fL (80-100); Mean Platelet Volume 10.6 fL (9.1-12.4); NEUTROPHILS ABSOLUTE AUTO 13.54 K/mm3 (1.96-9.15); NEUTROPHILS PERCENT AUTO 78 % (41-73); Platelet Count 311 K/mm3 (150-400); RDW Coefficient Variation 13.5 % (11.7-14.2); RDW Standard Deviation 42.5 fL (35.1-46.3); Red Blood Cell Count 5.27 M/mm3 (3.80-5.20); White Blood Cell Count 17.27 K/mm3 (4.00-11.30)
[2023-04-30 05:48] LABS: Albumin, Blood 3.4 g/dL (3.4-5.0); Albumin/Globulin Ratio 0.9 (0.8-1.8); Bilirubin, Total 0.7 mg/dL (0.1-1.0); Bun/Creatinine Ratio 24.3 (12.0-20.0); Calcium, Blood 8.6 mg/dL (8.5-10.1); Creatinine, Blood 0.54 mg/dL (0.40-1.00); Globulin, Blood 3.6 g/dL (2.2-4.0); Potassium, Blood 3.2 mmol/L (3.5-5.5)
[2023-04-30 07:32] VITALS: BP 126/69
--- NOTE | 2023-04-30 11:14 | NUR ---
AM NOTE: PATIENT ALERT AND ORIENTED X4. PERRLA, WEARING GLASSES. DENIES NUMBNESS/TINGLING. SBA TO TRANSFER. ON 2-3L WHEN SLEEPING, DESATS TO MID 80'S AT TIMES DURING DEEP SLEEP. SATING ABOVE 95% ON ROOM AIR WHEN AWAKE. DENIES COUGH. LUNGS SOUNDING WHEEZY WITH DIMINISHED BASES. RESPIRATORY IN THIS AM TO GIVE BREATHING TREATMENTS. 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 PATIENT HAD EPISODE THIS AM OF VOCAL CHORD SPASM, RESOLVED WITHIN 5 MIN. AIRWAY REMAINED PATENT AND SPO2 ABOVE 95%. RT TO BEDSIDE. TELE SHOWING SR WITH HR 80'S. BP STABLE. DENIES CHEST PAIN/PRESSURE/PALPITATIONS. NO SIGNS OF EDEMA. NS INFUSING PER EMAR. K REPLACED. BOWEL TONES PRESENT. DENIES NAUSEA AT THIS TIME. CLEAR LIQUID DIET ORDERS IN PLACE. PATIENT DRINKING TEA AND WATER AT THIS TIME. ORDERS TO ADVANCE TOLERATED. CALL LIGHT IN REACH.
--- NOTE | 2023-04-30 15:02 | NUR ---
PATIENT TOLERATING CLEAR LIQUIDS. ADVANCED TO FULL LIQUID AT THIS TIME.
[2023-04-30 16:09] VITALS: BP 11/60; BP 111/60
--- NOTE | 2023-04-30 18:40 | NUR ---
SHIFT SUMMARY: NO ACUTE CHANGES. PATIENT REMAINS ALERT AND ORIENTED. ON ROOM AIR DURING DAY. FLUIDS COMPLETED PER EMAR. TELE CONTINUES TO SHOW NSR. VITAL SIGNS STABLE. CONTINUES TO DENY PAIN THROUGHOUT DAY. TOLERATING FULL LIQUID DIET. DENIES NEED FOR NAUSEA MEDICATION. UP IND TO BATHROOM. PATIENT TALKING WITH FAMILY ON PHONE THROUGHOUT DAY. ACHS BLOOD SUGARS. DENIES NEEDS AT THIS TIME.
[2023-04-30 19:47] VITALS: BP 129/65
--- NOTE | 2023-05-01 04:33 | NUR ---
SHIFT SUMMARY AOX4, SBA-IND IN ROOM. NO ACUTE EVENTS THIS SHIFT. HAS NOT HAD N/V THIS SHIFT. VSS, NEEDS MET AT THIS TIME. PLAN FOR POSSIBLE DC IN AM. CALL LIGHT IN REACH.
[2023-05-01 04:48] LABS: BASOPHILS ABSOLUTE AUTO 0.02 K/mm3 (0.00-0.23); BASOPHILS PERCENT AUTO 0 % (0-2); EOSINOPHILS ABSOLUTE AUTO 0.01 K/mm3 (0.00-0.68); EOSINOPHILS PERCENT AUTO 0 % (0-6); Hematocrit 44.3 % (33.0-51.0); Hemoglobin 14.7 g/dL (11.5-16.0); IMMATURE GRAN ABSOLUTE AUTO 0.05 K/mm3 (0.00-0.10); IMMATURE GRAN PERCENT AUTO 1 % (0-1); LYMPHOCYTES ABSOLUTE AUTO 2.46 K/mm3 (0.84-5.20); LYMPHOCYTES PERCENT AUTO 27 % (21-46); MONOCYTES ABSOLUTE AUTO 0.93 K/mm3 (0.16-1.47); MONOCYTES PERCENT AUTO 10 % (4-13); Mean Corpuscular HGB 29.2 pg (26.0-34.0); Mean Corpuscular HGB Conc 33.2 g/dL (31.5-36.5); Mean Corpuscular Volume 88 fL (80-100); Mean Platelet Volume 10.2 fL (9.1-12.4); NEUTROPHILS ABSOLUTE AUTO 5.69 K/mm3 (1.96-9.15); NEUTROPHILS PERCENT AUTO 62 % (41-73); Platelet Count 251 K/mm3 (150-400); RDW Coefficient Variation 13.7 % (11.7-14.2); Red Blood Cell Count 5.04 M/mm3 (3.80-5.20); White Blood Cell Count 9.16 K/mm3 (4.00-11.30)
[2023-05-01 05:23] LABS: Albumin, Blood 3.2 g/dL (3.4-5.0); Anion Gap 6 mmol/L (6-16); Blood Urea Nitrogen 14 mg/dL (8-24); Bun/Creatinine Ratio 21.7 (12.0-20.0); CO2, Blood 25 mmol/L (21-32); Calcium, Blood 8.5 mg/dL (8.5-10.1); Chloride, Blood 108 mmol/L (98-108); Creatinine, Blood 0.65 mg/dL (0.40-1.00); Glomerular Filtration Rate 100 (60-); Glucose, Blood 100 mg/dL (70-99); Phosphorus, Blood 2.1 mg/dL (2.5-4.9); Potassium, Blood 3.1 mmol/L (3.5-5.5); Sodium, Blood 139 mmol/L (136-145)
[2023-05-01 05:30] VITALS: BP 134/75
[2023-05-01 07:55] VITALS: BP 138/80
--- NOTE | 2023-05-01 17:23 | NUR ---
DISCHARGE SUMMARY PATIENT DENIES ANY ISSUES AT THIS TIME. PATIENT MEDICATION AND EDUCATION PACKET PRINTED AND REVIEWED WITH PATIENT. CONSENT SIGNED. TELE AND IV REMOVED BY ALONSO CANCHOLA AND ESCORTED SBA TO ENTRANCE WHERE PATIENT PICKED UP VIA PRIVATE VEHICLE AT 1405.
[2023-06-16] MEDS ORDERED: Cleocin HCl150 MG PO (13:01)
== END 2023-05-01 16:34 | disposition home or self-care (01) ==
LOC: ER 15:35 → MEDS 15:36 → ENPENDDIS 05-01 11:17 → MEDS 05-01 16:34
PROVIDERS: Family Medicine; Student in an Organized Health Care Education/Training Program; ADMIT Internal Medicine
DX: R11.2 Nausea with vomiting, unspecified (principal); R94.31 Abnormal electrocardiogram [ECG] [EKG]; D72.829 Elevated white blood cell count, unspecified; E87.6 Hypokalemia; E83.39 Other disorders of phosphorus metabolism; E11.9 Type 2 diabetes mellitus without complications; J44.9 Chronic obstructive pulmonary disease, unspecified; J45.909 Unspecified asthma, uncomplicated; I10 Essential (primary) hypertension; G47.30 Sleep apnea, unspecified; F32.9 Major depressive disorder, single episode, unspecified; F43.10 Post-traumatic stress disorder, unspecified; K21.9 Gastro-esophageal reflux disease without esophagitis; E78.5 Hyperlipidemia, unspecified; E86.0 Dehydration; N85.00 Endometrial hyperplasia, unspecified; Z88.0 Allergy status to penicillin; Z88.1 Allergy status to other antibiotic agents; Z88.9 Allergy status to unspecified drugs, medicaments and biological substances; Z88.8 Allergy status to other drugs, medicaments and biological substances; Z87.891 Personal history of nicotine dependence; Z99.89 Dependence on other enabling machines and devices
CPT/HCPCS: 36415; 74176; 80053; 80069; 81001; 82947; 83690; 83735; 84484; 85025; 93005; 93010; 94640; 94664; 94760; 96365; 96366; 96368; 96372; 96372-59; 96375; 96376; 99285-25; A9270; C9113; G0378; J0360; J1650; J2060; J2405; J3475; J3480; J7030

== ENCOUNTER 2023-07-09 10:28 | Emergency (ER) | payer OTHER ==
[~2023-07-09] VITALS: Ht 167.6 cm; Wt 102.1 kg
[~2023-07-09 10:28] MED LIST changes: +Cleocin HCl150 MG PO
[2023-07-09 10:58] LABS: BASOPHILS ABSOLUTE AUTO 0.02 K/mm3 (0.00-0.23); BASOPHILS PERCENT AUTO 0 % (0-2); EOSINOPHILS ABSOLUTE AUTO 0.01 K/mm3 (0.00-0.68); EOSINOPHILS PERCENT AUTO 0 % (0-6); Hematocrit 44.9 % (33.0-51.0); Hemoglobin 15.2 g/dL (11.5-16.0); IMMATURE GRAN ABSOLUTE AUTO 0.05 K/mm3 (0.00-0.10); IMMATURE GRAN PERCENT AUTO 1 % (0-1); LYMPHOCYTES ABSOLUTE AUTO 2.33 K/mm3 (0.84-5.20); LYMPHOCYTES PERCENT AUTO 26 % (21-46); MONOCYTES ABSOLUTE AUTO 0.84 K/mm3 (0.16-1.47); MONOCYTES PERCENT AUTO 9 % (4-13); Mean Corpuscular HGB 29.6 pg (26.0-34.0); Mean Corpuscular HGB Conc 33.9 g/dL (31.5-36.5); Mean Corpuscular Volume 87 fL (80-100); Mean Platelet Volume 10.6 fL (9.1-12.4); NEUTROPHILS ABSOLUTE AUTO 5.74 K/mm3 (1.96-9.15); NEUTROPHILS PERCENT AUTO 64 % (41-73); Platelet Count 283 K/mm3 (150-400); RDW Standard Deviation 41.3 fL (35.1-46.3); Red Blood Cell Count 5.14 M/mm3 (3.80-5.20); White Blood Cell Count 8.99 K/mm3 (4.00-11.30)
[2023-07-09 11:20] LABS: Albumin, Blood 3.8 g/dL (3.4-5.0); Bilirubin, Total 0.5 mg/dL (0.1-1.0); Bun/Creatinine Ratio 18.3 (12.0-20.0); Calcium, Blood 9.3 mg/dL (8.5-10.1); Creatinine, Blood 0.71 mg/dL (0.40-1.00); Globulin, Blood 3.9 g/dL (2.2-4.0); Potassium, Blood 3.5 mmol/L (3.5-5.5); Total Protein, Blood 7.7 g/dL (6.4-8.2)
[2023-07-09] MEDS ORDERED: PRED20 PO (11:54)
[2023-07-09 12:06] VITALS: BP 152/82
== END 2023-07-09 12:16 | disposition home or self-care (01) ==
LOC: ER 10:28
PROVIDERS: Emergency Medicine
DX: J44.1 Chronic obstructive pulmonary disease with (acute) exacerbation (principal); R07.89 Other chest pain; I10 Essential (primary) hypertension; E11.9 Type 2 diabetes mellitus without complications; F41.9 Anxiety disorder, unspecified; E78.5 Hyperlipidemia, unspecified; Z87.891 Personal history of nicotine dependence; Z88.0 Allergy status to penicillin; Z88.1 Allergy status to other antibiotic agents; Z88.8 Allergy status to other drugs, medicaments and biological substances; Z88.7 Allergy status to serum and vaccine; Z79.51 Long term (current) use of inhaled steroids; Z79.899 Other long term (current) drug therapy
CPT/HCPCS: 71045; 80053; 84484; 85025; 93005; 93010; J2930

== ENCOUNTER 2024-01-21 05:15 | Emergency (ER) | payer OTHER ==
[~2024-01-21] VITALS: Ht 172.7 cm; Wt 90.7 kg
[2024-01-21] MEDS ORDERED: Ondansetron HCl 2 MG / ML 2ML Vial IV ONE (05:40)
[2024-01-21 05:55] LABS: BASOPHILS ABSOLUTE AUTO 0.03 K/mm3 (0.00-0.23); BASOPHILS PERCENT AUTO 0 % (0-2); EOSINOPHILS ABSOLUTE AUTO 0.01 K/mm3 (0.00-0.68); EOSINOPHILS PERCENT AUTO 0 % (0-6); Hematocrit 47.7 % (33.0-51.0); Hemoglobin 15.6 g/dL (11.5-16.0); IMMATURE GRAN ABSOLUTE AUTO 0.05 K/mm3 (0.00-0.10); IMMATURE GRAN PERCENT AUTO 1 % (0-1); LYMPHOCYTES ABSOLUTE AUTO 1.56 K/mm3 (0.84-5.20); LYMPHOCYTES PERCENT AUTO 21 % (21-46); MONOCYTES ABSOLUTE AUTO 0.63 K/mm3 (0.16-1.47); MONOCYTES PERCENT AUTO 9 % (4-13); Mean Corpuscular HGB 29.7 pg (26.0-34.0); Mean Corpuscular HGB Conc 32.7 g/dL (31.5-36.5); Mean Corpuscular Volume 91 fL (80-100); Mean Platelet Volume 10.1 fL (9.1-12.4); NEUTROPHILS ABSOLUTE AUTO 5.16 K/mm3 (1.96-9.15); NEUTROPHILS PERCENT AUTO 69 % (41-73); Platelet Count 248 K/mm3 (150-400); RDW Coefficient Variation 13.5 % (11.7-14.2); RDW Standard Deviation 45.3 fL (35.1-46.3); Red Blood Cell Count 5.26 M/mm3 (3.80-5.20); White Blood Cell Count 7.44 K/mm3 (4.00-11.30)
[2024-01-21] MEDS ORDERED: NS 1,000 ML IV SCH (06:15)
[2024-01-21 06:28] LABS: Influenza A, PCR NEGATIVE (NEGATIVE); Influenza B, PCR NEGATIVE (NEGATIVE); Resp Syncytial Virus, PCR NEGATIVE (NEGATIVE); SARS-Cov-2 (COVID-19) PCR, MMC NEGATIVE (NEGATIVE)
[2024-01-21 06:35] LABS: Albumin, Blood 3.8 g/dL (3.4-5.0); Bilirubin, Total 0.4 mg/dL (0.1-1.0); Bun/Creatinine Ratio 26.5 (12.0-20.0); Calcium, Blood 9.3 mg/dL (8.5-10.1); Creatinine, Blood 0.68 mg/dL (0.40-1.00); Globulin, Blood 3.9 g/dL (2.2-4.0); Potassium, Blood 4.1 mmol/L (3.5-5.5); Total Protein, Blood 7.7 g/dL (6.4-8.2)
[2024-01-21 06:42] LABS: Source, Urine Clean Catch
[2024-01-21 06:46] LABS: Appearance, Urine Clear (Clear); Bilirubin, Urine Neg (Neg); Blood, Urine 1+ (Neg); Color, Urine Yellow (P-Yellow); Glucose Qualitative, Urine 1+ (Neg); Ketones, Urine Neg (Neg); Leukocyte Esterase, Urine Neg (Neg); Nitrite, Urine Neg (Neg); Protein, Urine Neg (Neg); Specific Gravity, Urine 1.025 (1.003-1.022); Urobilinogen, Urine NORM (Normal)
[2024-01-21 06:57] LABS: Bacteria Rare /hpf; Mucus Light (0-Heavy); Squamous Epithelial Cells Few /hpf (Few); White Blood Cells, Urine 0-2 /hpf (0-5)
[2024-01-21] MEDS ORDERED: Metoclopramide HCl 5MG / ML 2ML Vial IV ONE (08:30)
[2024-01-21] MEDS ORDERED: AmLODIPine Besylate 5 MG Tab PO ONE (09:00)
[2024-01-21] MEDS ORDERED: Losartan Potassium 50 MG Tab PO ONE (09:05)
[2024-01-21 09:09] VITALS: BP 188/86
[2024-01-21] MEDS ORDERED: Labetalol HCL 5 MG/ML 4ML Injection (Single Dose) IV ONE (10:15)
[2024-01-21] MEDS ORDERED: LOPE2C PO (11:36)
[2024-01-22] MEDS ORDERED: CHLO25B PO (13:41)
[2024-01-22] MEDS ORDERED: BUPR75 PO (13:41)
[2024-01-22] MEDS ORDERED: [UNRECOGNIZED DRUG - OTHER] PO (13:42)
[2024-01-22] MEDS ORDERED: DICLOFENAC SOD100 GM TP (13:42)
[2024-01-22] MEDS ORDERED: ROPI.25 PO (13:43)
[2024-01-22] MEDS ORDERED: METO10 PO (13:43)
[2024-01-22] MEDS ORDERED: MONT10T PO (13:43)
[2024-01-22] MEDS ORDERED: SIME80CH PO (13:44)
== END 2024-01-21 12:00 | disposition home or self-care (01) ==
LOC: ER 05:15
PROVIDERS: Emergency Medicine
DX: K52.9 Noninfective gastroenteritis and colitis, unspecified (principal); I10 Essential (primary) hypertension; J44.9 Chronic obstructive pulmonary disease, unspecified; E11.9 Type 2 diabetes mellitus without complications; F41.9 Anxiety disorder, unspecified; F32.A Depression, unspecified; F43.10 Post-traumatic stress disorder, unspecified; K21.9 Gastro-esophageal reflux disease without esophagitis; E78.5 Hyperlipidemia, unspecified; Z88.0 Allergy status to penicillin; Z88.8 Allergy status to other drugs, medicaments and biological substances; Z88.7 Allergy status to serum and vaccine; Z88.1 Allergy status to other antibiotic agents; Z79.899 Other long term (current) drug therapy; Z79.51 Long term (current) use of inhaled steroids; Z87.891 Personal history of nicotine dependence
CPT/HCPCS: 0241U; 80053; 81001; 83690; 85025; 93005; 93010; 96361; 96374; 96375; 99284-25; A9270; J2405; J2765; J7030

== ENCOUNTER 2024-01-23 10:26 | Day surgery (SDC) | payer OTHER ==
[2024-01-23] VITALS (9 sets, daily range): BP systolic 105–180; BP diastolic 64–94
[~2024-01-23] VITALS: Ht 164.5 cm; Wt 100.8 kg
[~2024-01-23 10:26] MED LIST changes: +BUPR75 PO; +CHLO25B PO; +CeFAZolin Sodium 2,000 MG in NS 100 ML IV SCH; +DICLOFENAC SOD100 GM TP; +LOPE2C PO; +Lactated Ringer's 1,000 ML IV SCH; +MONT10T PO; +SIME80CH PO; +[UNRECOGNIZED DRUG - OTHER] PO
[2024-01-23] MEDS ORDERED: FentaNYL Citrate 50 MCG/ML 2 ML Injection ONE (10:50)
[2024-01-23] MEDS ORDERED: propofoL 20 ML IV ONE (10:50)
[2024-01-23] MEDS ORDERED: Midazolam HCl 1MG / ML 2ML Vial IV ONE (11:05)
--- NOTE | 2024-01-23 11:27 | NUR ---
History, Chart, Medications and Allergies reviewed before start of procedure. Patient up to Ambulate independently. Gait steady. Pre-Op teaching done. Pt verbalizes understanding. Patient confirms NPO status and agrees with scheduled surgery. Patient States Post-Procedure ride home has been arranged.
[2024-01-23] MEDS ORDERED: Midazolam HCl 1MG / ML 2ML Vial ONE (11:41)
[2024-01-23] MEDS ORDERED: Dexamethasone Sod Phos 10 MG/ML 1ML VIAL ONE (11:46)
[2024-01-23] MEDS ORDERED: Ondansetron HCl 2 MG / ML 2ML Vial ONE (11:46)
[2024-01-23] MEDS ORDERED: Ketorolac Tromethamine 30mg Vial ONE (11:46)
[2024-01-23] MEDS ORDERED: HydrALAZINE HCl 20 MG / ML 1ML Vial ONE (11:58)
[2024-01-23] MEDS ORDERED: OxyCODONE 5 mg/Acetamin 325 mg TABLET PO PRN (12:20)
--- NOTE | 2024-01-23 13:21 | NUR ---
Patient up to Ambulate independently. Gait steady. Discharge instructions reviewed with patient. Patient verbalizes understanding. Copy given to patient to take home.Pt discharged to home-out via wheelchair with belongings and discharge instructions on hand.
== END 2024-01-23 13:21 | disposition home or self-care (01) ==
LOC: ORSCMMR 10:26 → ORD 11:30 → ORSCMMR 11:30
PROVIDERS: Obstetrics & Gynecology
PROC: 0UDB8ZX Extraction of Endometrium, Via Natural or Artificial Opening Endoscopic, Diagnostic (ICD-10-PCS; principal; 2024-01-23 11:30)
DX: N95.0 Postmenopausal bleeding (principal); N84.0 Polyp of corpus uteri; R93.89 Abnormal findings on diagnostic imaging of other specified body structures; N85.00 Endometrial hyperplasia, unspecified; N88.2 Stricture and stenosis of cervix uteri; E66.9 Obesity, unspecified; Z68.39 Body mass index [BMI] 39.0-39.9, adult
CPT/HCPCS: 82947; 88305; A9270; J0360; J0690; J1100; J1885; J2250; J2405; J2704; J3010; J7120

== ENCOUNTER 2024-04-28 11:59 | Emergency (ER) | payer OTHER ==
[~2024-04-28] VITALS: Ht 167.6 cm; Wt 103.4 kg
[~2024-04-28 11:59] MED LIST changes: -CeFAZolin Sodium 2,000 MG in NS 100 ML IV SCH; -Lactated Ringer's 1,000 ML IV SCH
[2024-04-28 12:49] LABS: BASOPHILS ABSOLUTE AUTO 0.03 K/mm3 (0.00-0.23); BASOPHILS PERCENT AUTO 0 % (0-2); EOSINOPHILS ABSOLUTE AUTO 0.01 K/mm3 (0.00-0.68); EOSINOPHILS PERCENT AUTO 0 % (0-6); Hematocrit 46.1 % (33.0-51.0); IMMATURE GRAN ABSOLUTE AUTO 0.06 K/mm3 (0.00-0.10); IMMATURE GRAN PERCENT AUTO 1 % (0-1); LYMPHOCYTES ABSOLUTE AUTO 2.58 K/mm3 (0.84-5.20); LYMPHOCYTES PERCENT AUTO 23 % (21-46); MONOCYTES ABSOLUTE AUTO 1.03 K/mm3 (0.16-1.47); MONOCYTES PERCENT AUTO 9 % (4-13); Mean Corpuscular HGB 29.7 pg (26.0-34.0); Mean Corpuscular HGB Conc 34.7 g/dL (31.5-36.5); Mean Corpuscular Volume 86 fL (80-100); Mean Platelet Volume 10.4 fL (9.1-12.4); NEUTROPHILS PERCENT AUTO 67 % (41-73); Platelet Count 274 K/mm3 (150-400); RDW Coefficient Variation 13.1 % (11.7-14.2); RDW Standard Deviation 40.5 fL (35.1-46.3); Red Blood Cell Count 5.39 M/mm3 (3.80-5.20); White Blood Cell Count 11.11 K/mm3 (4.00-11.30)
[2024-04-28 13:23] LABS: Albumin, Blood 3.3 g/dL (3.4-5.0); Albumin/Globulin Ratio 0.9 (0.8-1.8); Bun/Creatinine Ratio 19.5 (12.0-20.0); Calcium, Blood 9.4 mg/dL (8.5-10.1); Creatinine, Blood 0.77 mg/dL (0.40-1.00); Globulin, Blood 3.8 g/dL (2.2-4.0); Potassium, Blood 3.5 mmol/L (3.5-5.5); Total Protein, Blood 7.1 g/dL (6.4-8.2)
[2024-04-28] MEDS ORDERED: NS 1,000 ML IV SCH (15:20)
[2024-04-28] MEDS ORDERED: Pantoprazole Sodium 40 MG Injection IV ONE (15:20)
[2024-04-28] MEDS ORDERED: Ondansetron HCl 2 MG / ML 2ML Vial IV ONE (15:20)
[2024-04-28] MEDS ORDERED: ONDA4 PO (16:34)
[2024-04-28] MEDS ORDERED: OMEP20ER PO (16:34)
[2024-04-28 16:35] VITALS: BP 192/89
== END 2024-04-28 16:39 | disposition home or self-care (01) ==
LOC: ER 11:59
PROVIDERS: Physician Assistant
DX: R10.13 Epigastric pain (principal); J44.9 Chronic obstructive pulmonary disease, unspecified; I10 Essential (primary) hypertension; E11.9 Type 2 diabetes mellitus without complications; K21.9 Gastro-esophageal reflux disease without esophagitis; Z87.891 Personal history of nicotine dependence; Z79.899 Other long term (current) drug therapy; Z79.52 Long term (current) use of systemic steroids; Z88.0 Allergy status to penicillin; Z88.8 Allergy status to other drugs, medicaments and biological substances
CPT/HCPCS: 74019; 80053; 83690; 85025; 96374; 96375; 99283-25; J2405; J2470; J7030

== ENCOUNTER 2025-08-27 06:40 | Emergency (ER) | payer OTHER ==
[~2025-08-27] VITALS: Ht 167.6 cm; Wt 81.7 kg
[~2025-08-27 06:40] MED LIST changes: +OMEP20ER PO; +ONDA4 PO; +REGLAN1013 PO
[2025-08-27] MEDS ORDERED: MAGNESIUM OXID500 MG PO (07:05)
[2025-08-27 07:30] VITALS: BP 144/77
== END 2025-08-27 07:30 | disposition home or self-care (01) ==
LOC: ER 06:40
DX: J44.89 Other specified chronic obstructive pulmonary disease (principal); J45.901 Unspecified asthma with (acute) exacerbation; I10 Essential (primary) hypertension; Z88.0 Allergy status to penicillin; Z88.1 Allergy status to other antibiotic agents; Z88.8 Allergy status to other drugs, medicaments and biological substances; Z79.899 Other long term (current) drug therapy; Z79.51 Long term (current) use of inhaled steroids
CPT/HCPCS: 99283

== ENCOUNTER 2025-08-31 08:25 | Emergency (ER) | payer OTHER ==
[~2025-08-31] VITALS: Ht 167.6 cm; Wt 104.3 kg
[~2025-08-31 08:25] MED LIST changes: +MAGNESIUM OXID500 MG PO
[2025-08-31 08:58] LABS: BASOPHILS ABSOLUTE AUTO 0.03 K/mm3 (0.00-0.23); BASOPHILS PERCENT AUTO 0 % (0-2); EOSINOPHILS ABSOLUTE AUTO 0.03 K/mm3 (0.00-0.68); EOSINOPHILS PERCENT AUTO 0 % (0-6); Hematocrit 47.1 % (33.0-51.0); Hemoglobin 15.8 g/dL (11.5-16.0); IMMATURE GRAN ABSOLUTE AUTO 0.05 K/mm3 (0.00-0.10); IMMATURE GRAN PERCENT AUTO 1 % (0-1); LYMPHOCYTES ABSOLUTE AUTO 2.44 K/mm3 (0.84-5.20); LYMPHOCYTES PERCENT AUTO 26 % (21-46); MONOCYTES ABSOLUTE AUTO 0.73 K/mm3 (0.16-1.47); MONOCYTES PERCENT AUTO 8 % (4-13); Mean Corpuscular HGB Conc 33.5 g/dL (31.5-36.5); Mean Corpuscular Volume 88 fL (80-100); NEUTROPHILS ABSOLUTE AUTO 6.00 K/mm3 (1.96-9.15); NEUTROPHILS PERCENT AUTO 65 % (41-73); NRBC ABSOLUTE 0.00 K/mm3 (0.00-0.02); NRBC Auto 0.0 /100 WBC (0.0-0.2); Platelet Count 302 K/mm3 (150-400); RDW Coefficient Variation 13.2 % (11.7-14.2); RDW Standard Deviation 42.4 fL (35.1-46.3)
[2025-08-31 09:29] LABS: Alanine Aminotransfer (ALT/SGP 19.0 U/L (12-78); Albumin, Blood 3.9 g/dL (3.4-5.0); Albumin/Globulin Ratio 1.0 (0.8-1.8); Anion Gap 7.0 mmol/L (3-11); Aspartate Aminotrans (AST/SGOT 10.0 U/L (12-37); Bilirubin, Total 1.0 mg/dL (0.1-1.0); Blood Urea Nitrogen 18.0 mg/dL (8-24); CO2, Blood 27.0 mmol/L (21-32); Calcium, Blood 9.5 mg/dL (8.5-10.1); Chloride, Blood 103.0 mmol/L (98-108); Creatinine, Blood 0.83 mg/dL (0.40-1.00); Globulin, Blood 3.8 g/dL (2.2-4.0); Glucose, Blood 130.0 mg/dL (70-99); Potassium, Blood 4.2 mmol/L (3.5-5.5); Sodium, Blood 133.0 mmol/L (136-145); Total Protein, Blood 7.7 g/dL (6.4-8.2)
[2025-08-31 11:30] VITALS: BP 132/100
== END 2025-08-31 11:36 | disposition home or self-care (01) ==
LOC: ER 08:25
PROVIDERS: Emergency Medicine
DX: R07.89 Other chest pain (principal); J44.89 Other specified chronic obstructive pulmonary disease; F43.10 Post-traumatic stress disorder, unspecified; K21.9 Gastro-esophageal reflux disease without esophagitis; E78.5 Hyperlipidemia, unspecified; Z87.891 Personal history of nicotine dependence; Z79.899 Other long term (current) drug therapy; Z88.0 Allergy status to penicillin; Z88.1 Allergy status to other antibiotic agents; Z88.8 Allergy status to other drugs, medicaments and biological substances
CPT/HCPCS: 71046; 80053; 84484; 85025; 93005; 93010; 99285-25

== ENCOUNTER 2025-09-24 11:27 | Observation (INO) | payer OTHER ==
[~2025-09-24] VITALS: Ht 167.6 cm; Wt 106.3 kg
[2025-09-24] MEDS ORDERED: Metoclopramide HCl 5MG / ML 2ML Vial IV ONE (12:00)
[2025-09-24 12:43] LABS: BASOPHILS ABSOLUTE AUTO 0.05 K/mm3 (0.00-0.23); BASOPHILS PERCENT AUTO 0 % (0-2); EOSINOPHILS ABSOLUTE AUTO 0.06 K/mm3 (0.00-0.68); EOSINOPHILS PERCENT AUTO 0 % (0-6); Hematocrit 45.8 % (33.0-51.0); Hemoglobin 15.7 g/dL (11.5-16.0); IMMATURE GRAN ABSOLUTE AUTO 0.09 K/mm3 (0.00-0.10); IMMATURE GRAN PERCENT AUTO 1 % (0-1); LYMPHOCYTES ABSOLUTE AUTO 1.97 K/mm3 (0.84-5.20); LYMPHOCYTES PERCENT AUTO 13 % (21-46); MONOCYTES ABSOLUTE AUTO 1.60 K/mm3 (0.16-1.47); MONOCYTES PERCENT AUTO 11 % (4-13); Mean Corpuscular HGB Conc 34.3 g/dL (31.5-36.5); Mean Corpuscular Volume 86 fL (80-100); NEUTROPHILS ABSOLUTE AUTO 11.31 K/mm3 (1.96-9.15); NEUTROPHILS PERCENT AUTO 75 % (41-73); NRBC ABSOLUTE 0.00 K/mm3 (0.00-0.02); NRBC Auto 0.0 /100 WBC (0.0-0.2); Platelet Count 302 K/mm3 (150-400); RDW Coefficient Variation 13.4 % (11.7-14.2); RDW Standard Deviation 41.7 fL (35.1-46.3)
[2025-09-24 13:03] LABS: Alanine Aminotransfer (ALT/SGP 20.0 U/L (12-78); Albumin, Blood 3.9 g/dL (3.4-5.0); Albumin/Globulin Ratio 1.0 (0.8-1.8); Anion Gap 13.0 mmol/L (3-11); Aspartate Aminotrans (AST/SGOT 22.0 U/L (12-37); Bilirubin, Total 1.0 mg/dL (0.1-1.0); Blood Urea Nitrogen 42.0 mg/dL (8-24); CO2, Blood 20.0 mmol/L (21-32); Calcium, Blood 9.6 mg/dL (8.5-10.1); Chloride, Blood 101.0 mmol/L (98-108); Creatinine, Blood 1.65 mg/dL (0.40-1.00); Globulin, Blood 3.8 g/dL (2.2-4.0); Glucose, Blood 152.0 mg/dL (70-99); Potassium, Blood 3.8 mmol/L (3.5-5.5); Sodium, Blood 130.0 mmol/L (136-145); Total Protein, Blood 7.7 g/dL (6.4-8.2)
[2025-09-24 13:52] LABS: Source, Urine Voided
[2025-09-24 13:57] LABS: Bilirubin, Urine Neg (Neg); Color, Urine Yellow (P-Yellow); Glucose Qualitative, Urine Neg (Neg); Ketones, Urine 2+ (Neg); Leukocyte Esterase, Urine 1+ (Neg); Protein, Urine 3+ (Neg); Specific Gravity, Urine 1.020 (1.003-1.022); Urobilinogen, Urine NORM (Normal)
[2025-09-24 14:14] LABS: Red Blood Cells, Urine TNTC /hpf (0-2)
[2025-09-24] MEDS ORDERED: Ondansetron HCl 2 MG / ML 2ML Vial IV ONE (16:10)
[2025-09-24] MEDS ORDERED: FLU VACC TS2025-26(6MOS UP)/PF 45 MCG/0.5 ML SYRINGE IM SCH (16:50)
[2025-09-24] MEDS ORDERED: Prochlorperazine Edisylate 10 mg Vial IV PRN (16:50)
[2025-09-24] MEDS ORDERED: NS 1,000 ML IV SCH (16:55)
[2025-09-24] MEDS ORDERED: CefTRIAXone Sodium 1,000 MG in NS 100 ML IV SCH (18:00)
[2025-09-24 18:11] VITALS: BP 155/112
--- NOTE | 2025-09-24 18:19 | NUR ---
CONTINUATION OF CARE: PATIENT TRANSFERED TO ROOM 208. BELONGINGS PUT AWAY AND HAD PATIENT CHANGE INTO GOWN. DOES NOT COMPLAIN OF NAUSEA AT THIS TIME. WAS ABLE TO ANSWER ALL ORIENTATION QUETIONS CORRECTLY. RA AT THIS TIME. PATIENT STATES LAST "NORMAL" BOWEL MOVEMENT WAS 09/21/25. LUNGS CLEAR HEART SOUNDS AUDIBLE. NO PAIN, NUMBNESS, OR TINGLING IN FEET. CALL LIGHT WITHIN.
--- NOTE | 2025-09-24 19:12 | NUR ---
TELE PLACEMENT TELE PLACED; SR 93 PER CLIENT RELATIONSHIP MANAGER.
[2025-09-24 19:44] VITALS: BP 144/72
[2025-09-24] MEDS ORDERED: CYMBALTA60 M1 PO (20:54)
[2025-09-24] MEDS ORDERED: AMLO5 PO (20:56)
[2025-09-24] MEDS ORDERED: DULoxetine HCL 30 MG Cap DR PO SCH (21:00)
[2025-09-24] MEDS ORDERED: PRASUGREL HCL10 MG PO (23:40)
[2025-09-25 00:17] VITALS: BP 135/64
[2025-09-25 02:58] VITALS: BP 101/63
[2025-09-25 04:58] LABS: BASOPHILS ABSOLUTE AUTO 0.05 K/mm3 (0.00-0.23); BASOPHILS PERCENT AUTO 0 % (0-2); EOSINOPHILS ABSOLUTE AUTO 0.06 K/mm3 (0.00-0.68); EOSINOPHILS PERCENT AUTO 1 % (0-6); Hematocrit 41.1 % (33.0-51.0); Hemoglobin 13.9 g/dL (11.5-16.0); IMMATURE GRAN ABSOLUTE AUTO 0.04 K/mm3 (0.00-0.10); IMMATURE GRAN PERCENT AUTO 0 % (0-1); LYMPHOCYTES ABSOLUTE AUTO 3.24 K/mm3 (0.84-5.20); LYMPHOCYTES PERCENT AUTO 26 % (21-46); MONOCYTES ABSOLUTE AUTO 1.28 K/mm3 (0.16-1.47); MONOCYTES PERCENT AUTO 10 % (4-13); Mean Corpuscular HGB Conc 33.8 g/dL (31.5-36.5); Mean Corpuscular Volume 87 fL (80-100); NEUTROPHILS ABSOLUTE AUTO 7.73 K/mm3 (1.96-9.15); NEUTROPHILS PERCENT AUTO 62 % (41-73); NRBC ABSOLUTE 0.00 K/mm3 (0.00-0.02); NRBC Auto 0.0 /100 WBC (0.0-0.2); Platelet Count 242 K/mm3 (150-400); RDW Coefficient Variation 13.2 % (11.7-14.2); RDW Standard Deviation 42.8 fL (35.1-46.3)
[2025-09-25 05:24] LABS: Alanine Aminotransfer (ALT/SGP 16.0 U/L (12-78); Albumin, Blood 3.2 g/dL (3.4-5.0); Albumin/Globulin Ratio 1.0 (0.8-1.8); Anion Gap 8.0 mmol/L (3-11); Aspartate Aminotrans (AST/SGOT 11.0 U/L (12-37); Bilirubin, Total 0.9 mg/dL (0.1-1.0); Blood Urea Nitrogen 23.0 mg/dL (8-24); CO2, Blood 25.0 mmol/L (21-32); Calcium, Blood 8.5 mg/dL (8.5-10.1); Chloride, Blood 105.0 mmol/L (98-108); Creatinine, Blood 1.07 mg/dL (0.40-1.00); Globulin, Blood 3.3 g/dL (2.2-4.0); Glucose, Blood 106.0 mg/dL (70-99); Potassium, Blood 3.6 mmol/L (3.5-5.5); Sodium, Blood 134.0 mmol/L (136-145); Total Protein, Blood 6.5 g/dL (6.4-8.2)
[2025-09-25] MEDS ORDERED: Albuterol HFA200 ACT/6.7 GM INH INH PRN (05:35)
[2025-09-25 07:21] VITALS: BP 137/72
--- NOTE | 2025-09-25 07:27 | NUR ---
SUMMARY PT WEARING O2 FOR HX SLEEP APNEA WITH INTOLERANCE TO CPAP.OBTAINED ORDER FOR PRN INHALER PT TAKES AT HOME SHE REPORTS FARILY CONSISTENT USE DURING NIGHT AT HOME, BUT NOT NEEDING TONIGHT.
[2025-09-25 09:39] VITALS: BP 115/65
[2025-09-25] MEDS ORDERED: METO25ER PO (12:23)
[2025-09-25] MEDS ORDERED: ASPI81CH PO (12:23)
[2025-09-25] MEDS ORDERED: CEPH500 PO (12:24)
[2025-09-25] MEDS ORDERED: FAMO20 PO (12:24)
[2025-09-25 14:21] VITALS: BP 120/58
--- NOTE | 2025-09-25 14:22 | NUR ---
DISCHARGE PT PROVIDED WITH WRITTEN AND VERBAL DISCHARGE INSTRUCTIONS, SHE REPORTED UNDERSTANDING. PRESCRIPTIONS FAXED TO [facility] PER PT REQUEST. VSS PRIOR TO DISCHARGE. PT AMBULATED OUT INDEPENDENTLY.
== END 2025-09-25 14:23 | disposition home or self-care (01) ==
LOC: ER 11:27 → SURS 11:28 → ER 16:41 → SURS 16:41
PROVIDERS: Emergency Medicine; ADMIT Internal Medicine
DX: N17.9 Acute kidney failure, unspecified (principal); E86.0 Dehydration; R11.2 Nausea with vomiting, unspecified; E87.1 Hypo-osmolality and hyponatremia; I10 Essential (primary) hypertension; I25.10 Atherosclerotic heart disease of native coronary artery without angina pectoris; I21.9 Acute myocardial infarction, unspecified; E11.9 Type 2 diabetes mellitus without complications; E78.5 Hyperlipidemia, unspecified; J44.9 Chronic obstructive pulmonary disease, unspecified; F41.9 Anxiety disorder, unspecified; F32.A Depression, unspecified; K21.9 Gastro-esophageal reflux disease without esophagitis; F43.10 Post-traumatic stress disorder, unspecified; Z95.5 Presence of coronary angioplasty implant and graft; Z87.891 Personal history of nicotine dependence; Z79.02 Long term (current) use of antithrombotics/antiplatelets; Z79.899 Other long term (current) drug therapy; Z88.0 Allergy status to penicillin; Z88.8 Allergy status to other drugs, medicaments and biological substances
CPT/HCPCS: 36415; 74177; 80053; 81001; 83690; 84484; 85025; 87086; 93005; 93010; 94640; 94664; 96374-59; 99285-25; A9270; G0378; J0696; J0780; J2405; J7030; Q9967